=== PATIENT | female | born 1965 | race Caucasian/White ===

== ENCOUNTER 2024-11-03 13:49 | Emergency (ER) | payer BC ==
[~2024-11-03] VITALS: Ht 167.6 cm; Wt 51.0 kg
[2024-11-03 14:13] VITALS: TEMP 98
[2024-11-03] MEDS: LevETIRAcetam 1,000 MG in DEXTROSE 5%-WATER 100 ML IV ONE (14:19)
[2024-11-03] MEDS: ACETAMINOPHEN 325 MG TABLET PO ONE (14:19)
[2024-11-03 14:30] LABS: GLUCOMETER DEV NAME(LOC) ERT.7; GLUCOSE,POINT OF CARE 79 MG/DL (70-110)
[2024-11-03 14:36] LABS: PLATELET COUNT (AUTO) 212 K/uL (150-450); RED BLOOD CELL COUNT(AUTO) 3.82 MIL/uL (4.00-5.20); RED CELL DISTRIBUTION WIDTH 14.2 % (11.5-14.5); WHITE BLOOD COUNT (AUTO) 10.2 K/uL (4.5-11.0)
[2024-11-03 14:49] LABS: CALCIUM, TOTAL 8.4 mg/dL (8.8-10.5); CREATININE 0.58 mg/dL (0.60-1.30); GLOMERULAR FILTR. RATE CALC > 60 mL/min (>60); GLUCOSE,RANDOM 99 mg/dL (70-110); SODIUM SERUM 139 mmol/L (136-145); UREA NITROGEN, BLOOD 7 mg/dL (7-18)
[2024-11-03 14:53] LABS: TROPONIN I-HIGH SENSITIVITY 15 ng/L (<51)
[2024-11-03 15:00] LABS: LACTIC ACID 4.0 mmol/L (0.4-2.0)
[2024-11-03] MEDS: SODIUM CHLORIDE 0.9% 1,000 ML IV ONE (15:11)
[2024-11-03 16:42] VITALS: BP 156/97; PULSE 96; RESP 12; O2SAT 99
[2024-11-03] MEDS ORDERED: LEVE-71 PO (18:09)
== END 2024-11-03 18:45 | disposition home or self-care (01) ==
LOC: EMS 13:51
DX: R56.9 Unspecified convulsions (principal); Z85.3 Personal history of malignant neoplasm of breast; Z88.5 Allergy status to narcotic agent
CPT/HCPCS: 99284; 96374; 96361; 80048; 82962; 83605; 84484; 85025; 36415; 93005; J0712; J7060; J7030; 96375